=== PATIENT | male | born 1975 | race Caucasian/White ===

== ENCOUNTER 2025-08-07 00:12 | Emergency (ER) | payer BC, SELFPAY ==
[2025-08-07 00:33] VITALS: BP 132/86; PULSE 90; RESP 18; TEMP 36.7; O2SAT 99; BMI 25.0
--- NOTE | 2025-08-07 00:59 | CRLHL7_ITS ---
For Patients: As a result of the Century Cures Act, medical imaging exams and procedure reports are released immediately into your electronic medical record. You may view this report before your referring provider. If you have questions, please contact your health care provider. INDICATION: Right flank pain. TECHNIQUE: CT abdomen and pelvis without contrast. COMPARISON: None. FINDINGS: Lower chest: Unremarkable. Liver: Normal in size and attenuation. Gallbladder and bile ducts: No stones or inflammation. No biliary ductal dilatation. Spleen: Normal in size. Adrenal glands: Normal in size. No nodules. Pancreas: No inflammation. Kidneys: Left inferior pole cyst. No stones or hydronephrosis. GI tract: Colonic diverticulosis without evidence of diverticulitis. No evidence of obstruction. Normal appendix. Lymph nodes: No lymphadenopathy. Vasculature: Abdominal aorta is normal in caliber. Abdominal wall/Omentum/Peritoneum: Unremarkable. No free air or significant free fluid. Pelvis: Unremarkable. Bones: Lower lumbar spondylosis. IMPRESSION: No acute abdominal or pelvic abnormality on this noncontrast examination. Please note that all CT scans at this facility use dose modulation, iterative reconstruction, and/or weight-based dosing when appropriate to reduce radiation dose to as low as reasonably achievable. Dictated by Norman Arango MD @ 08/07/2025 1:36:20 AM (Electronically Signed)
[2025-08-07 01:00] VITALS: TEMP 36.7
--- OUTSIDE RECORDS SUMMARY | 2025-08-07 01:31 | XMS_ITS | Clinical Summary ---
Author Organization [facility] Address [address] [place] [id number] Care Team Providers Care Data Integration Analyst Name Role Phone Evelyn Torrez DO Primary Care Provider [phone] Allergies No known active allergies Medications cyclobenzaprine 10 mg tabletIndications: Restless legs TAKE 1 TABLET(10 MG) BY MOUTH THREE TIMES DAILY NEEDED FOR MUSCLE SPASM 30 Tablet 3 5 Active ibuprofen (ADVIL; MOTRIN) 600 mg tabletIndications: Lateral epicondylitis of right elbow Take 1 Tablet (600 mg) by mouth every 6 hours if needed for Pain. Maximum of 3200 mg in 24 hours. 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 ) 07/16/2025 Travel from Last 3 Months Immunizations Immunization Administration Dates Next Due Influenza Virus, Unspecified 03/07/2021( Deferred: Patient Refused),08/12/2019,08/19/2009 Tdap 06/10/2015 Family History Medical History Relation Name Comments Diabetes Father No Known Problems Mother No Known Problems Sister Cancer-colon No Family History Cancer-prostate No Family History Heart attack No Family History Relation Name Status Comments Father Alive Mother Alive Sister Alive Social History Tobacco Use Types Packs/Day Years Used Date Smoking Tobacco: Former Cigarettes Q uit: 01/10/2021 Smokeless Tobacco: Never Tobacco Cessation:Counseling Given: Yes Comments:6-7 cigarettes/day Alcohol Use Standard Drinks/Week Comments No 0 (1 standard drink = 0.6 oz pur e alcohol) PHQ-2 Answer Date Recorded PHQ-2 TOTAL SCORE 0 03/17/2024 Social Connections Answer Date Recorded Do you often feel lonely or isolated from those around you? 0 07/16/2025 Financial Resource Strain Answer Date R ecorded Difficulty of Paying Living Expenses 3 07/16/2025 Difficulty of Paying Living Expenses Not on file 07/16/2025 Food Insecurity Answer Date Recorded Do you worry your food will run out before you are able to buy more? 1 07/16/2025 Transportation Needs Answer Date Record ed Does lack of transportation keep you from medica l appointments? 1 07/16/2025 Does lack of transportation keep you from work, meetings or getting things that you need? 1 07/16/2025 Housing Stability Answer Date Recorded What is your housing situation today? 1 07/16/2025 Utilities Answer Date Recorded Do you have trouble paying f or utilities (for example, heat, electricity, water, phone)? 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 Gender Identity Not on file Sexual Orientation Not on file Obstetrics History Last Filed Vital Signs Vital Sign Reading Time Taken Comments Blood Pressure 118/83 07/16/2025 9:13 AM CDT Pulse 102 07/16/2025 9:29 AM CDT Temperature 37 C (98.6 F) 09/08/2021 12:03 PM CDT Respiratory Rate 16 09/08/2021 2:20 PM CDT Oxygen Saturation 96% 07/16/2025 9:13 AM CDT Inhaled Oxygen Concentration - - Weight 74.4 kg (164 lb) 07/16/2025 9:13 AM CDT Height 163.8 cm (5' 4.5) 01/22/2025 10:36 AM CS T Body Mass Index 27.72 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 Plan of Treatment Upcoming Encounters Date Type Department Care Team (Late st Contact Info) Description 08/11/2025 1:10 PM CDT Office Visit [facility] [address] [place] [address] Evelyn Torrez DO [address] [place] [address] Health Maintenance Due Date Last Done Comments Hepatitis B series for 19+ (1 of 3 - 19+ 3-dose series) 1996 Colonoscopy through age 75 2022 Depression screening for age 12+ 03/17/2025 03/17/2024, 01/07/2021, 12/01/2020, Additional history exists Tetanus booster 06/10/2025 06/10/2015 COVID-19 vaccine series (2024- season) 2025 07/04/2021, 06/06/2021 Influenza Vaccine (#1) 2025 08/12/2019, 2008 BMI (ht and wt on same day) for age 18+ 01/22/2026 01/22/2025, 11/04/2024, 03/17/2024, Additional history exists Lipids for age 45-75 04/02/2029 04/02/2024, 10/04/2021 (Verified in Care Everywhere or Patient Record) RSV vaccine for adults or (1 - 1-dose 75+ series) 2052 HIV for age 15-65 Addressed 10/01/2020 (Ve rified in Care Everywhere or Patient Record) Overridden with the intention of not completing the topic Hepatitis C screening for age 18-79 Completed 04/02/2024 Pneumococcal series for age 6-49 Aged Out No longer eligible b ased on patient's age to complete this topic Procedures Procedure Name Priority Date/Time Associated Diagnosis Comments ANTI HCV Routine 04/02/2024 7:55 AM CDT Need for hepatitis C screening test LIPID PANEL W REFLEX MEASURED LDL Routine 04/02/2024 7:55 AM CDT Screening for lipid disorders from Last 3 Months or Most Recently Relevant to Health Maintenance Results * (ABNORMAL) LIPID PANEL W REFLEX MEASURED LDL (04/02/2024 7:55 AM CDT) CHOLESTEROL,TOTAL 200(H) 100 - 199 mg/dL 04/02/2024 6:48 PM CDT [facility] [employer] [facility] Comment: Cholesterol, Total Reference Ranges Desirable <200 mg/dL Borderline 200-239 mg/dL High >=240 mg/dL TRIGLYCERIDES 109 <150 mg/dL 04/02/2024 6:48 PM CDT [facility] [facility] HDL CHOLESTEROL 47 >40 mg/dL 6:48 PM CDT [facility] NON-HDL CHOLESTEROL 153(H) <145 mg/dl 04/02/2024 6:48 PM CDT [facility] CHOL/HDL RATIO 4.26 <4.50 04/02/2024 6:48 PM CDT [facility] LDL CHOLESTEROL 131(H) <=130 mg/dL 04/02/2024 6:48 PM CDT [facility] VLDL CHOLESTEROL 22 <=30 mg/dL 04/02/2024 6:48 PM CDT [facility] PROVIDER ORDERED STATUS RANDOM 04/02/2024 6:48 PM CDT [facility] [employer] [facility] Blood BLOOD SPECIMEN / Unknown Venipuncture / Unknown 04/02/2024 7:55 AM CDT 04/02/2024 7:57 AM CDT us Evelyn Torrez DO CHEMISTRY Final Resu lt [facility] [address] [place] [id number], [place] * ANTI HCV (04/02/2024 7:55 AM CDT) HEPATITIS C ANTIBODY Non-Reacti ve Non-React marcela 04/02/2024 6:35 PM CDT [facility] Comment:Please note, per www .CDC.gov: If a patient is known to be at high risk of HCV infection, or is symptomatic, and the physician's suspicion of HCV infection is high, HCV RNA testing is often employed and is of diagnostic value, even after an initial negative anti-HCV test result. Blood BLOOD SPECIMEN / Unknown Venipuncture / Unknown 04/02/2024 7:55 AM CDT 04/02/2024 7:57 AM CDT us Evelyn Torrez DO SEND OUTS Final Resu lt [facility] [address] [place] [phone], from Last 3 Months or Most Recently Relevant to Health Maintenance Insurance [facility] Advance Directives * Full Code (Latest Code Status on File) Date Activated Date Inactivated Comments 10/07/2010 7:13 AM 10/07/2010 10:42 AM Care Teams Data Integration Analyst Relationship Specialty Start Date End Date Evelyn Torrez DO [facility] [place] [address] PCP - General Family Practice 03/12/24
[2025-08-07 01:51] LABS: Appearance Urine Clear (Clear)
[2025-08-07 02:03] VITALS: TEMP 36.7
[2025-08-07 02:08] VITALS: BP 129/79; PULSE 85; RESP 18; TEMP 36.7; O2SAT 99
[2025-08-07 02:19] VITALS: BP 129/79; PULSE 85; RESP 18; TEMP 36.7
--- NOTE | 2025-08-07 03:05 | ED.BACK ---
HPI - Back Pain/Injury General Date Seen: 08/07/25 Chief Complaint: Flank Pain Stated Complaint: flank pain Time Seen by Provider: 08/07/25 00:53 Source: patient Mode of arrival: ambulatory Limitations: no limitations History of Present Illness HPI Narrative: Patient is a 50-year-old male who was in his usual state of good health until about 9:00 a.m. this evening when he had sudden onset of right flank pain. No urinary symptoms. No hematuria. No history of kidney stones. He did not take anything prior to coming in other than a hot bath. No nausea or vomiting. No constipation issues. He works at [employer] and did not do anything strenuous at work today. No recent injury. No GI symptoms. Related Data Home Medications ?Medication ?Instructions ?Recorded ?Confirmed No Known Home Medications 08/07/25 08/07/25 Allergies Allergy/AdvReac Type Severity Reaction Status Date / Time No Known Drug Allergies Allergy Verified 08/07/25 00:35 Review of Systems Narrative: Review of systems is outlined above otherwise noted to be negative. PFSH PFS Social History Smoking Status: Never smoker Second hand tobacco smoke exposure: No How often do you have a drink containing alcohol: never AUDIT-C Alcohol total score: 0 Non-prescribed substance use: denies use Exam Narrative: Exam Narrative: Vitals noted. HEENT: Conjunctiva clear. Neck is supple without adenopathy. Lungs: Clear to auscultation in all hawk. No wheezes, rales, rhonchi. Heart: Regular rate and rhythm without murmur. Abdomen: Soft and nontender. No guarding, rigidity, rebound. Bowel sounds are normal. No palpable masses. There is some myofascial tightness and tenderness in the right low back. No palpable spasms. Straight leg raising is negative. Reflexes are symmetric. Extremities: No cyanosis or edema. Good distal pulses. Skin: No abnormalities noted of the exposed skin. Neurologic: Awake, alert, fully oriented. Neurologic exam is nonfocal. Const: Vital Signs, click to edit/add: Vital Signs - 24 hr 08/07/25 00:33 08/07/25 01:00 08/07/25 02:03 Temperature 98.0 F 98.0 F 98.0 F Pulse Rate [Right Pulse Oximeter] 90 Respiratory Rate 18 Blood Pressure [Ri ght Upper Arm] 132/86 Pulse Oximetry 99 Oxygen Delivery Me thod Room Air 08/07/25 02:08 08/07/25 02:19 Temperature 98.0 F 98.0 F Pulse Rate [Right Pulse Oximeter] 85 85 Respiratory Rate 18 18 Blood Pressure [Ri ght Upper Arm] 129/79 129/79 Pulse Oximetry 99 Oxygen Delivery Me thod Room Air Course Course ED Course: Patient seen and examined. IV is established and he is given Toradol [address] of the abdomen and pelvis is unremarkable. Reevaluation(s) Reevaluation #1: His pain is improved with Toradol. Urinalysis is unremarkable. We discussed that this is not a kidney infection or kidney stone. I suspect this is musculoskeletal. Vital Signs Vital signs: Initial Vital Signs Temperature 98.0 F 08/07/25 00:33 Temperature Source Temporal Artery Scan 08/07/25 00:33 Pulse Rate 90 08/07/25 00:33 Respiratory Rate 18 08/07/25 00:33 Blood Pressure 132/86 08/07/25 00:33 Blood Pressure Mean 101 08/07/25 00:33 Blood Pressure Position Sitting 08/07/25 00:33 Pulse Oximetry 99 08/07/25 00:33 Oxygen Delivery Method Room Air 08/07/25 00:33 Vital Signs Temperature 98.0 F 08/07/25 00:33 Pulse Rate 90 08/07/25 00:33 Respiratory Rate 18 08/07/25 00:33 Blood Pressure 132/86 08/07/25 00:33 Pulse Oximetry 99 08/07/25 00:33 Oxygen Delivery Method Room Air 08/07/25 00:33 Temperature 98.0 F 08/07/25 02:19 Pulse Rate 85 08/07/25 02:19 Respiratory Rate 18 08/07/25 02:19 Blood Pressure 129/79 08/07/25 02:19 Pulse Oximetry 99 08/07/25 02:08 Oxygen Delivery Method Room Air 08/07/25 02:08 Medications Administered Medications: Discontinued Medications Generic Name Dose Route Start Last Admin Trade Name Freq PRN Reason Stop Dose Admin Ketorolac Tromethamine 30 mg 08/07/25 00:59 08/07/25 01:00 Ketorolac 30 Mg/Ml Inj IVP 08/07/25 01:00 30 mg ONCE ONE Administration MDM - Back Pain/Injury Lab Data Labs: Lab Results 08/07/25 Range/Units 01:45 Urine Color Yellow (Yellow) Urine Appearance Clear (Clear) Urine pH 5.5 (5.0-8.5) Ur Specific Cove >= 1.030 (1.000-1.030) Urine Protein Negative (Negative) Urine Glucose (UA) Negative (Negative) Urine Ketones Negative (Negative) Urine Blood Trace-lysed A (Negative) Urine Nitrite Negative (Negative) Urine Bilirubin Negative (Negative) Urine Urobilinogen 0.2 (0.2-1.0) Ur Leukocyte Esterase Negative (Negative) Urine RBC 0-2 (0-2) Urine WBC 0-2 (0-5) Ur Squamous Epith Cells None (None-Few) Urine Bacteria None (None) Discharge Plan Discharge Clinical Impression: Low back pain Patient Disposition: Home, Self-Care Condition: Improved Instructions: Acute Low Back Pain (ED) Additional Instructions: Heat in the am, ice after activity. Ibuprofen 600 mg three times daily. Hubbell for refractory pain. Follow up in the clinic if no better in 3-5 days. Prescriptions: No Action No Known Home Medications Follow Up/Referrals: Evelyn Torrez DO [Primary Care Provider, Family Practice] Stand Alone Forms: MyHealth Info Instructions
== END 2025-08-07 02:20 | disposition home or self-care (01) ==
PROVIDERS: Emergency Provider Family Medicine; PCP Family Medicine
DX: M54.50 Low back pain, unspecified (principal)
CPT/HCPCS: 74176; 81001; 96374; 99282; 99283; 99284; J1885